=== PATIENT | male | born 1965 | race Caucasian/White ===

== ENCOUNTER 2019-12-28 14:17 | Outpatient (CLI) | payer BC, SELFPAY ==
--- NOTE | ~2019-12-28 | XR_ITS ---
EXAMINATION: XR chest 2V DATE: 12/28/2019 14:38 INDICATION: Cough. TECHNIQUE: Frontal and lateral views of the chest were obtained. COMPARISON: PET CT 01/16/2019 FINDINGS: There are mild airspace opacities in the midlung zones. No pleural effusion or pneumothorax . The heart size is normal. IMPRESSION: 1. Mild airspace opacities in the midlung zones, consistent with atelectasis versus pneumonia. Reviewed, dictated and finalized at location B. IMPRESSION: 1. Mild airspace opacities in the midlung zones, consistent with atelectasis ve rsus pneumonia.
== END 2019-12-28 14:18 | disposition home or self-care (01) ==
LOC: ANHIMG 14:29
PROVIDERS: PCP Family Medicine; Visit Provider Family Medicine
DX: R05 Cough (principal); R91.8 Other nonspecific abnormal finding of lung field
CPT/HCPCS: 71046

== ENCOUNTER 2020-01-28 10:49 | Outpatient (CLI) | payer BC, SELFPAY ==
--- NOTE | ~2020-01-28 | XR_ITS ---
EXAMINATION: XR chest 2V DATE: 01/28/2020 11:03 INDICATION: Pneumonia. Follow-up. TECHNIQUE: Frontal and lateral views of the chest were obtained. COMPARISON: Chest 2 views 12/28/2019, PET CT 01/16/2019 FINDINGS: There is mild linear scarring versus atelectasis in the mid and lower lung zones. No pleura l effusion or pneumothorax. The heart size is normal. IMPRESSION: 1. Mild linear scarring versus atelectasis in the mid and lower lung zones. Reviewed, dictated and finalized at location B. WORKER
== END 2020-01-28 10:50 | disposition home or self-care (01) ==
LOC: ANHIMG 10:53
PROVIDERS: PCP Family Medicine; Visit Provider Family Medicine
DX: J18.9 Pneumonia, unspecified organism (principal); Z09 Encounter for follow-up examination after completed treatment for conditions other than malignant neoplasm
CPT/HCPCS: 71046

== ENCOUNTER 2023-08-04 12:34 | Emergency (ER) | payer OTHER, BC, SELFPAY ==
--- NOTE | ~2023-08-04 | CT_ITS ---
Noncontrast CT scan of the cervical spine Technique: Multiple contiguous axial [address] images of the cervical spine were obtained and rec onstructed in 2D sagittal and coronal planes on the acquisition scanner. Dose reduction technique was used on this scan by utilizing automated exposure control, adjustment of the mA and/or kV according to patient size. The dose-length product (DLP) was 605.33 mGy-cm. Clinical History: Pain Findings: No fractures or dislocations. There is straightening of normal cervical lordosis. There is advanced degenerative disc narrowing at C6-C7. Remaining disc spaces are preserved. There is bilater al neural foraminal narrowing at C6-C7 with disc ossify complex present. No prevertebral soft tissue swelling. Impression: No fracture or subluxation of the cervical spine. Reviewed, dictated and finalized at [facility]. Impression: No fracture or subluxation of the cervical spine.
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
[2023-08-04 12:38] VITALS: PULSE 82; RESP 17; TEMP 36.7; O2SAT 100
[2023-08-04 12:45] VITALS: BP 153/93; PULSE 79; RESP 17; O2SAT 99
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
[2023-08-04 14:22] VITALS: BP 161/107; PULSE 80; RESP 20; O2SAT 99
== END 2023-08-04 14:24 | disposition home or self-care (01) ==
PROVIDERS: Emergency Provider Nurse Practitioner Family; PCP Family Medicine
DX: S16.1XXA Strain of muscle, fascia and tendon at neck level, initial encounter (principal); V89.2XXA Person injured in unspecified motor-vehicle accident, traffic, initial encounter
CPT/HCPCS: 70450; 72125; 99284